=== PATIENT | male | born 1970 | race Caucasian/White ===

== ENCOUNTER 2019-05-06 23:08 | Inpatient (IN) | payer BC ==
[~2019-05-06] VITALS: Ht 180.3 cm; Wt 119.3 kg
[~2019-05-06 23:08] MED LIST: 'PARAFON FORTE500 M1 PO; ACTOS15 M1 PO; ASPIRIN81 M1 PO; CIPRO500 MG PO; DIABETA,MICRO1.25 MG PO; EES400 MG PO; FLAGYL500 MG PO; HYDR12.5C PO; HYDROCODONE BIT1 T11 PO; JANUVIA25 MG PO; KLOR-CON 1010 ME1 PO; LOTREL 10 MG-201 CAP PO; METFORMIN1000 MG PO; Motrin,Rufen800 MG PO; NAPROSYN500 MG PO; NORCO 5-325 TA1 EACH PO; PRAVASTATIN SOD10 MG PO; PREDNISONE20 M1 PO; PRILOSEC20 M1 PO
[2019-05-06 23:09] VITALS: BP 148/101
[2019-05-06] MEDS ORDERED: OZEMPIC1 MG/0.75 SQ (23:16)
[2019-05-06 23:41] LABS: BILIRUBIN NEGATIVE (NEGATIVE); BLOOD TRACE-INTACT (NEGATIVE); CLARITY CLEAR (CLEAR); COLOR YELLOW (YELLOW); GLUCOSE 3+ (NEGATIVE); KETONE 1+ (NEGATIVE); LEUKO ESTERASE NEGATIVE (NEGATIVE); NITRITE NEGATIVE (NEGATIVE); PH 5.5 (5.0-9.0); SPECIFIC GRAVITY 1.015 (1.005-1.030); UROBILINOGEN 0.2 E.U./dl (0.2-1.0)
[2019-05-06 23:53] LABS: BASO % 0.4 % (0.0-1.0); EOS # 0.1 10*3/uL (0.0-0.4); EOS % 1.1 % (1.0-4.0); HEMATOCRIT 38.6 % (42.0-52.0); HEMOGLOBIN 14.1 g/dl (14.0-18.0); LYMPH # 2.7 10*3/uL (1.3-4.4); LYMPH % 26.8 % (27.0-41.0); MEAN CELL VOLUME 82.1 fl (80.0-94.0); MEAN CORPUSCULAR HGB CONC 36.5 g/dl (33.0-37.0); MEAN PLATELET VOLUME 8.9 fl (9.6-12.3); MONO # 1.2 10*3/uL (0.1-1.0); MONO % 11.6 % (3.0-9.0); NEUT # 6.1 10*3/uL (2.3-7.9); NEUT % 59.9 % (47.0-73.0); PLATELET COUNT AUTOMATED 313 10*3/uL (130-400); RED CELL DISTRI WIDTH 11.9 % (0-14.5); WHITE BLOOD COUNT 10.1 10*3/uL (4.8-10.8)
[2019-05-06 23:53] LABS: WBC 0-2 wbc/hpf (0-5)
[2019-05-07] LABS: ACT PARTIAL THROMBO TIME 23.4 SECONDS (20.0-32.1)
[2019-05-07 00:06] LABS: ALBUMIN 3.4 gm/dl (3.1-4.5); ALKALINE PHOSPHATASE 61 U/L (45-117); BUN 23 mg/dl (7-24); CHLORIDE 97 mmol/L (98-107); CREATININE 0.84 mg/dL (0.70-1.30); POTASSIUM 3.7 mmol/L (3.5-5.1); SGOT/AST 17 IU/L (3-35); SGPT/ALT 52 U/L (12-78); SODIUM 131 mmol/L (136-145); TOTAL PROTEIN 7.2 gm/dL (6.4-8.2)
[2019-05-07 00:07] LABS: LIPASE 2466 U/L (73-393); TROPONIN I < 0.015 ng/ml (<0.045)
[2019-05-07 02:32] VITALS: BP 119/77
[2019-05-07 02:45] VITALS: BP 136/80
--- NOTE | 2019-05-07 02:45 | NUR ---
Time: 244 A 49 year old MALE admitted to under services of KINGSLEY RODRIGUEZ DO. Pt. arrived via bed from ER. Chief complaint: ABDOMINAL PAIN. NANDO HUDSON
--- NOTE | 2019-05-07 03:01 | NUR ---
PATIENT STATES THAT HE TAKES SOME SORT OF INSULIN AT NIGHT. 10 UNITS. BUT WAS JUST RECENTLY STARTED ON IT AND IS UNSURE WHAT IT IS CALLED
[2019-05-07 07:07] LABS: BASO # 0.1 10*3/uL (0.0-0.1); BASO % 0.7 % (0.0-1.0); EOS # 0.1 10*3/uL (0.0-0.4); EOS % 1.7 % (1.0-4.0); HEMATOCRIT 35.1 % (42.0-52.0); HEMOGLOBIN 12.8 g/dl (14.0-18.0); LYMPH # 2.9 10*3/uL (1.3-4.4); LYMPH % 34.3 % (27.0-41.0); MEAN CORPUSCULAR HGB 30.3 pg (27.0-31.0); MEAN CORPUSCULAR HGB CONC 36.5 g/dl (33.0-37.0); MEAN PLATELET VOLUME 9.1 fl (9.6-12.3); MONO # 0.8 10*3/uL (0.1-1.0); NEUT # 4.4 10*3/uL (2.3-7.9); NEUT % 53.2 % (47.0-73.0); PLATELET COUNT AUTOMATED 262 10*3/uL (130-400); RED BLOOD COUNT 4.23 10*6/uL (4.50-5.90); RED CELL DISTRI WIDTH 12.2 % (0-14.5); WHITE BLOOD COUNT 8.3 10*3/uL (4.8-10.8)
[2019-05-07 07:24] LABS: BUN 28 mg/dl (7-24); CHLORIDE 101 mmol/L (98-107); POTASSIUM 3.2 mmol/L (3.5-5.1); SGOT/AST 12 IU/L (3-35); SGPT/ALT 42 U/L (12-78); SODIUM 134 mmol/L (136-145); TOTAL PROTEIN 6.3 gm/dL (6.4-8.2)
[2019-05-07 07:31] LABS: ALKALINE PHOSPHATASE 46 U/L (45-117); CREATININE 0.74 mg/dL (0.70-1.30)
[2019-05-07 07:32] LABS: LIPASE 1943 U/L (73-393)
[2019-05-07 08:00] VITALS: BP 125/72
--- NOTE | 2019-05-07 09:00 | NUR ---
Hospitality Services Manager in to talk to patient. Patient states lives at home with . There are few steps in the home. Physician: lev bueno [facility] health services: none Patient's level of ADLs: INDEPENDENT Patient has working utilities: all working DME: none Follow-up physician's appointment after d/c: will be made by hospitalist nurse director upon discharge Does patient want to access PORTAL?: no Discharge plan discussed with patient, he lives at home with , he is independent in adls and ambulation, works, drives he states he will be returning home when able and denies any home needs. JANES REED
[2019-05-07 11:22] VITALS: BP 131/89
--- NOTE | 2019-05-07 14:37 | NUR ---
MEDICATED WITH NORCO FOR EPIGASTRIC PAIN 02/24 - PREVIOS NORCO WAS EFFECTIVE PER PT
--- NOTE | 2019-05-07 15:14 | NUR ---
PAIN NOW 12/25 - WATCHING TV
[2019-05-07 16:00] VITALS: BP 110/67
[2019-05-07 20:00] VITALS: BP 121/79
--- NOTE | 2019-05-07 20:20 | NUR ---
PATIENT REQUESTING PAIN MEDICATION FOR UPPER ABDOMINAL PAIN RIGHT SIDE, RATED 6/10 ON 0/10 SCALE. NORCO ADMINISTERED PRESCRIBED. WILL MONITOR FOR EFFECTIVENESS.
--- NOTE | 2019-05-07 21:20 | NUR ---
PATIENT STATES THAT NORCO WAS EFFECTIVE FOR PAIN.
--- NOTE | 2019-05-07 23:51 | NUR ---
PATIENT RESTING WITH EYES CLOSED. RESPIRATIONS EASY AND UNLABORED.CALL QUINTANILLA WITHIN REACH. WILL MONITOR.
[2019-05-08] VITALS: BP 125/68
--- NOTE | 2019-05-08 01:58 | NUR ---
PATIENT RESTING WITH EYES CLOSED. RESPIRATIONS EASY AND UNLABORED. NO DISTRESS NOTED.CALL LIGHT WITHIN REACH. WILL MONITOR.
--- NOTE | 2019-05-08 04:34 | NUR ---
PATIENT SITTING AT SIDE OF BED AT THIS TIME. PATIENT HAS NO COMPLIANTS. STATES THAT HE HAS NO PAIN AT THIS TIME. CALL LIGHT WITHIN REACH. WILL MONITOR.
[2019-05-08 06:22] LABS: CHLORIDE 104 mmol/L (98-107); LIPASE 740 U/L (73-393); POTASSIUM 3.5 mmol/L (3.5-5.1); SODIUM 138 mmol/L (136-145)
[2019-05-08 06:23] LABS: CREATININE 0.65 mg/dL (0.70-1.30)
[2019-05-08 06:24] LABS: BUN 13 mg/dl (7-24)
[2019-05-08 06:45] LABS: HEMATOCRIT 35.7 % (42.0-52.0); HEMOGLOBIN 12.5 g/dl (14.0-18.0); MEAN CELL VOLUME 85.2 fl (80.0-94.0); MEAN CORPUSCULAR HGB 29.8 pg (27.0-31.0); MEAN PLATELET VOLUME 9.4 fl (9.6-12.3); PLATELET COUNT AUTOMATED 272 10*3/uL (130-400); RED BLOOD COUNT 4.19 10*6/uL (4.50-5.90); RED CELL DISTRI WIDTH 12.5 % (0-14.5); WHITE BLOOD COUNT 7.5 10*3/uL (4.8-10.8)
[2019-05-08 07:43] LABS: BASOPHILS 1 % (0-1); PLATELET SUFFICIENCY NORMAL (NORMAL); TOTAL CELLS COUNTED 100 #CELLS
--- NOTE | 2019-05-08 07:47 | NUR ---
PT REQUESTED AND RECEIVED PO NORCO PER PRN ORDER FOR C/O ABD PAIN. RATES PAIN 12/25. WILL MONITOR EFFECTIVENESS. PT DENIES ANY N/V/D. WILL MONITOR. CALL LIGHT WITHIN REACH. VSS.
[2019-05-08 08:00] VITALS: BP 118/74
--- NOTE | 2019-05-08 08:50 | NUR ---
NORCO EFFECTIVE PER PT. WILL CONTINUE TO MONITOR.
--- NOTE | 2019-05-08 09:00 | NUR ---
case management visits with patient, he states his tenative discharge date is tomorrow, patient denies any home needs
--- NOTE | 2019-05-08 09:30 | NUR ---
PT TOLERATED FULL LIQUID DIET WITHOUT ANY DIFFICULTY. WILL CONTINUE TO MONITOR.
[2019-05-08 12:00] VITALS: BP 110/60
[2019-05-08 16:00] VITALS: BP 120/68
--- NOTE | 2019-05-08 16:16 | NUR ---
PT MEDICATED WITH PO NORCO PER PRN ORDER FOR C/O ABD PAIN. WILL MONITOR EFFECTIVENESS.
--- NOTE | 2019-05-08 17:53 | NUR ---
NORCO RELIEVING PAIN PER PT. WILL CONTINUE TO MONITOR.
[2019-05-08 20:00] VITALS: BP 135/79
[2019-05-09] VITALS: BP 117/67
--- NOTE | 2019-05-09 04:32 | NUR ---
PATIENT RESTING WITH EYES CLOSED. RESPIRATIONS EASY AND UNLABORED.CALL LIGHT WITHIN REACH. WILL MONITOR.
--- NOTE | 2019-05-09 04:35 | NUR ---
24 HR chart check completed.
[2019-05-09 06:13] LABS: BUN 8 mg/dl (7-24); CHLORIDE 104 mmol/L (98-107); CREATININE 0.68 mg/dL (0.70-1.30); LIPASE 498 U/L (73-393); POTASSIUM 3.4 mmol/L (3.5-5.1); SODIUM 138 mmol/L (136-145)
[2019-05-09 08:00] VITALS: BP 141/78
[2019-05-09] MEDS ORDERED: FLAGYL500 MG PO (08:52)
[2019-05-09] MEDS ORDERED: CIPRO500 MG PO (08:52)
--- NOTE | 2019-05-09 09:00 | NUR ---
case management visits with patient, he will be returning home possibly today, he denies any home needs
--- NOTE | 2019-05-09 12:04 | NUR ---
Discharge instructions reviewed with patient/family. Patient receptive and verbalizes understanding. Follow-up care arranged. Written instructions given to patient/family. LETA GONZALEZ.
== END 2019-05-09 12:04 | disposition home or self-care (01) | DRG 871 ==
LOC: ED 23:08 → 4E 05-07 01:50 → EDHOLD 05-07 01:50 → 4E 05-07 02:06
PROVIDERS: Internal Medicine; Physician Assistant; Student in an Organized Health Care Education/Training Program; ADMIT Emergency Medicine
DX: A41.9 Sepsis, unspecified organism (principal); K85.90 Acute pancreatitis without necrosis or infection, unspecified; E87.1 Hypo-osmolality and hyponatremia; E44.0 Moderate protein-calorie malnutrition; K57.32 Diverticulitis of large intestine without perforation or abscess without bleeding; D64.9 Anemia, unspecified; E87.6 Hypokalemia; E87.8 Other disorders of electrolyte and fluid balance, not elsewhere classified; E11.65 Type 2 diabetes mellitus with hyperglycemia; E83.42 Hypomagnesemia; R82.4 Acetonuria; R31.9 Hematuria, unspecified; E78.5 Hyperlipidemia, unspecified; I10 Essential (primary) hypertension; K21.9 Gastro-esophageal reflux disease without esophagitis; Z83.3 Family history of diabetes mellitus; Z79.84 Long term (current) use of oral hypoglycemic drugs; Z86.73 Personal history of transient ischemic attack (TIA), and cerebral infarction without residual deficits; Z82.49 Family history of ischemic heart disease and other diseases of the circulatory system; Z79.82 Long term (current) use of aspirin; Z79.899 Other long term (current) drug therapy; Z68.36 Body mass index [BMI] 36.0-36.9, adult

== ENCOUNTER → 2020-03-05 | Outpatient (CLI) | payer BC ==
[~2020-03-05] MED LIST changes: +OZEMPIC1 MG/0.75 SQ
== END | disposition home or self-care (01) ==
LOC: COVID19 05:37
DX: U07.1 COVID-19 (principal)

== ENCOUNTER → 2023-02-14 | Outpatient (CLI) | payer BC ==
[2023-02-14 11:27] LABS: BUN 17 mg/dl (9-23); CHOLESTEROL 180 mg/dL (<200); LDL CHOLESTEROL 111 mg/dL (9-159); SGPT/ALT 35 U/L (10-49); TRIGLYCERIDES 162 mg/dl (<150)
== END | disposition home or self-care (01) ==
LOC: LAB 09:55
PROVIDERS: ATTEND Internal Medicine Endocrinology, Diabetes & Metabolism
DX: E11.65 Type 2 diabetes mellitus with hyperglycemia (principal); I10 Essential (primary) hypertension; E78.5 Hyperlipidemia, unspecified; Z79.4 Long term (current) use of insulin

== ENCOUNTER 2023-02-24 19:20 | Emergency (ER) | payer BC ==
[~2023-02-24] VITALS: Ht 180.3 cm; Wt 117.9 kg
[2023-02-24] MEDS ORDERED: ROSUVASTATIN CA40 MG PO (20:06)
[2023-02-24 20:27] LABS: BASO % 0.3 % (0.0-1.0); EOS # 0.2 10*3/uL (0.0-0.4); EOS % 2.1 % (1.0-4.0); HEMATOCRIT 42.6 % (42.0-52.0); LYMPH # 2.5 10*3/uL (1.3-4.4); LYMPH % 29.5 % (27.0-41.0); MEAN CORPUSCULAR HGB 30.4 pg (27.0-31.0); MEAN CORPUSCULAR HGB CONC 36.2 g/dl (33.0-37.0); MEAN PLATELET VOLUME 8.2 fl (9.6-12.3); MONO # 0.6 10*3/uL (0.1-1.0); MONO % 7.4 % (3.0-9.0); NEUT # 5.2 10*3/uL (2.3-7.9); NEUT % 60.4 % (47.0-73.0); PLATELET COUNT AUTOMATED 297 10*3/uL (130-400); RED BLOOD COUNT 5.07 10*6/uL (4.50-5.90); RED CELL DISTRI WIDTH 12.8 % (0-14.5); WHITE BLOOD COUNT 8.6 10*3/uL (4.8-10.8)
[2023-02-24 20:56] LABS: ALKALINE PHOSPHATASE 65 U/L (46-116); BUN 18 mg/dl (9-23); CHLORIDE 105 mmol/L (98-107); POTASSIUM 3.9 mmol/L (3.4-5.1); SGPT/ALT 36 U/L (10-49); TOTAL PROTEIN 7.1 gm/dL (6.0-8.0)
[2023-02-24] MEDS ORDERED: LEVOFLOXACIN500 MG PO (22:10)
[2023-02-24] MEDS ORDERED: OMNICEF300 MG PO (22:10)
[2023-02-24] MEDS ORDERED: CORTISPORIN SUS10 ML OT (22:10)
== END 2023-02-24 22:17 | disposition home or self-care (01) ==
LOC: ED 19:20
PROVIDERS: Emergency Medicine
DX: H70.92 Unspecified mastoiditis, left ear (principal); R51.9 Headache, unspecified; I10 Essential (primary) hypertension; E78.00 Pure hypercholesterolemia, unspecified; K21.9 Gastro-esophageal reflux disease without esophagitis; E11.9 Type 2 diabetes mellitus without complications

== ENCOUNTER → 2023-06-22 | Outpatient (CLI) | payer BC ==
[~2023-06-22] MED LIST changes: +AMLODIPINE-BEN1 EAC1 PO; +AMOX-CLAV 875-1 EACH PO; +CORTISPORIN SUS10 ML OT; +JARDIANCE10 MG PO; +LEVOFLOXACIN500 MG PO; +OMNICEF300 MG PO; +OZEMPIC2 MG/0.71 SQ; +PRAVASTATIN SOD40 MG PO; +ROSUVASTATIN CA40 MG PO; +TRESIBA FL100 UNIT/1 SQ; +VITAMIN D325 MCG PO
[2023-06-22 14:08] LABS: ALKALINE PHOSPHATASE 77 U/L (46-116); BUN 12 mg/dl (9-23); CHLORIDE 104 mmol/L (98-107); CHOLESTEROL 144 mg/dL (<200); LDL CHOLESTEROL 79 mg/dL (9-159); POTASSIUM 4.6 mmol/L (3.4-5.1); SGPT/ALT 23 U/L (5-49); TOTAL PROTEIN 7.7 gm/dL (6.0-8.0); TRIGLYCERIDES 162 mg/dl (<150)
== END | disposition home or self-care (01) ==
LOC: LAB 13:10
PROVIDERS: ATTEND Internal Medicine Endocrinology, Diabetes & Metabolism
DX: E11.65 Type 2 diabetes mellitus with hyperglycemia (principal); I10 Essential (primary) hypertension; E78.5 Hyperlipidemia, unspecified; Z79.4 Long term (current) use of insulin

== ENCOUNTER 2023-06-24 03:57 | Emergency (ER) | payer BC ==
[~2023-06-24] VITALS: Ht 180.3 cm; Wt 116.6 kg
[~2023-06-24 03:57] MED LIST changes: -AMLODIPINE-BEN1 EAC1 PO; -AMOX-CLAV 875-1 EACH PO; -JARDIANCE10 MG PO; -OZEMPIC2 MG/0.71 SQ; -PRAVASTATIN SOD40 MG PO; -TRESIBA FL100 UNIT/1 SQ; -VITAMIN D325 MCG PO
[2023-06-24] MEDS ORDERED: OZEMPIC2 MG/0.71 SQ (04:32)
[2023-06-24] MEDS ORDERED: PRAVASTATIN SOD40 MG PO (04:32)
[2023-06-24] MEDS ORDERED: TRESIBA FL100 UNIT/1 SQ (04:32)
[2023-06-24] MEDS ORDERED: AMLODIPINE-BEN1 EAC1 PO (04:34)
[2023-06-24] MEDS ORDERED: JARDIANCE10 MG PO (04:34)
[2023-06-24] MEDS ORDERED: VITAMIN D325 MCG PO (04:35)
[2023-06-24] MEDS ORDERED: AMOX-CLAV 875-1 EACH PO (04:36)
== END 2023-06-24 04:38 | disposition home or self-care (01) ==
LOC: ED 03:57
DX: H66.92 Otitis media, unspecified, left ear (principal); I10 Essential (primary) hypertension; E78.00 Pure hypercholesterolemia, unspecified; K21.9 Gastro-esophageal reflux disease without esophagitis; E11.9 Type 2 diabetes mellitus without complications

== ENCOUNTER → 2023-10-04 | Outpatient (CLI) | payer BC ==
[~2023-10-04] MED LIST changes: +AMLODIPINE-BEN1 EAC1 PO; +AMOX-CLAV 875-1 EACH PO; +JARDIANCE10 MG PO; +OZEMPIC2 MG/0.71 SQ; +PRAVASTATIN SOD40 MG PO; +TRESIBA FL100 UNIT/1 SQ; +VITAMIN D325 MCG PO
[2023-10-04 10:06] LABS: BUN 14 mg/dl (9-23); CHOLESTEROL 118 mg/dL (<200); LDL CHOLESTEROL 60 mg/dL (9-159); SGPT/ALT 32 U/L (5-49); TRIGLYCERIDES 113 mg/dl (<150)
== END | disposition home or self-care (01) ==
LOC: LAB 08:57
PROVIDERS: ATTEND Internal Medicine Endocrinology, Diabetes & Metabolism
DX: E11.65 Type 2 diabetes mellitus with hyperglycemia (principal); E11.40 Type 2 diabetes mellitus with diabetic neuropathy, unspecified; I10 Essential (primary) hypertension; E78.5 Hyperlipidemia, unspecified; Z79.4 Long term (current) use of insulin

== ENCOUNTER → 2024-01-05 | Outpatient (CLI) | payer BC ==
[2024-01-05 13:51] LABS: BUN 12 mg/dl (9-23); CHOLESTEROL 139 mg/dL (<200); LDL CHOLESTEROL 72 mg/dL (9-159); SGPT/ALT 33 U/L (5-49); TRIGLYCERIDES 141 mg/dl (<150)
== END | disposition home or self-care (01) ==
LOC: LAB 12:18
PROVIDERS: ATTEND Internal Medicine Endocrinology, Diabetes & Metabolism
DX: E11.65 Type 2 diabetes mellitus with hyperglycemia (principal); E11.40 Type 2 diabetes mellitus with diabetic neuropathy, unspecified; I10 Essential (primary) hypertension; E78.5 Hyperlipidemia, unspecified; Z79.4 Long term (current) use of insulin

== ENCOUNTER → 2024-07-23 | Outpatient (CLI) | payer BC ==
[2024-07-23 13:53] LABS: BASO % 0.4 % (0.0-1.0); EOS # 0.5 10*3/uL (0.0-0.4); EOS % 4.7 % (1.0-4.0); HEMATOCRIT 45.9 % (42.0-52.0); MEAN CORPUSCULAR HGB 29.6 pg (27.0-31.0); MEAN CORPUSCULAR HGB CONC 34.9 g/dl (33.0-37.0); MEAN PLATELET VOLUME 8.1 fl (9.6-12.3); MONO # 0.8 10*3/uL (0.1-1.0); MONO % 7.3 % (3.0-9.0); NEUT # 6.8 10*3/uL (2.3-7.9); PLATELET COUNT AUTOMATED 295 10*3/uL (130-400); RED CELL DISTRI WIDTH 12.5 % (0-14.5); WHITE BLOOD COUNT 10.5 10*3/uL (4.8-10.8)
[2024-07-23 14:14] LABS: ALKALINE PHOSPHATASE 73 U/L (46-116); BUN 13 mg/dl (9-23); CHLORIDE 108 mmol/L (98-107); CHOLESTEROL 196 mg/dL (<200); LDL CHOLESTEROL 126 mg/dL (9-159); POTASSIUM 4.1 mmol/L (3.4-5.1); SGPT/ALT 30 U/L (5-49); TOTAL PROTEIN 8.1 gm/dL (6.0-8.0); TRIGLYCERIDES 163 mg/dl (<150)
== END | disposition home or self-care (01) ==
LOC: LAB 13:35
PROVIDERS: Student in an Organized Health Care Education/Training Program; ATTEND Internal Medicine Endocrinology, Diabetes & Metabolism
DX: E11.42 Type 2 diabetes mellitus with diabetic polyneuropathy (principal); E78.2 Mixed hyperlipidemia

== ENCOUNTER → 2025-01-28 | Outpatient (CLI) | payer OTHER ==
[2025-01-28 08:41] LABS: BUN 18 mg/dl (9-23); LDL CHOLESTEROL 62 mg/dL (9-159); SGPT/ALT 36 U/L (5-49)
== END ==
LOC: LAB 07:22
PROVIDERS: Student in an Organized Health Care Education/Training Program; ATTEND Internal Medicine Endocrinology, Diabetes & Metabolism
DX: E11.9 Type 2 diabetes mellitus without complications (principal)

== ENCOUNTER 2025-03-10 12:08 | Emergency (ER) | payer OTHER ==
[~2025-03-10] VITALS: Ht 180.3 cm; Wt 106.1 kg
[2025-03-10] MEDS ORDERED: PREDNISONE20 M1 PO (12:35)
[2025-03-10] MEDS ORDERED: CEPHALEXIN 500 MG CAP PO ONE (12:35)
[2025-03-10] MEDS ORDERED: CEPHALEXIN500 M1 PO (12:35)
== END 2025-03-10 12:56 | disposition home or self-care (01) ==
LOC: ED 12:08
DX: T63.461A Toxic effect of venom of wasps, accidental (unintentional), initial encounter (principal); K21.9 Gastro-esophageal reflux disease without esophagitis; E78.5 Hyperlipidemia, unspecified; I10 Essential (primary) hypertension; E11.9 Type 2 diabetes mellitus without complications; E78.00 Pure hypercholesterolemia, unspecified; Z86.73 Personal history of transient ischemic attack (TIA), and cerebral infarction without residual deficits; Y92.89 Other specified places as the place of occurrence of the external cause